=== PATIENT | female | born 1950 | race Caucasian/White ===

== ENCOUNTER 2023-06-19 05:34 | Inpatient (IN) | payer MEDICARE, OTHER ==
[2023-06-12 15:00] LABS: BASOPHILS % (AUTO) 0.5 % (0-1); EOSINOPHILS # (AUTO) 0.1 X10'3 (0-0.9); EOSINOPHILS % (AUTO) 1.4 % (0-6); LYMPHOCYTES # (AUTO) 1.6 X10'3 (1.1-4.8); LYMPHOCYTES % (AUTO) 21.4 % (21-51); MEAN CORPUSCULAR HEMOGLOBIN 31.4 PG (27.0-31.0); MEAN CORPUSCULAR HGB CONC 33.9 g/dL (33.0-36.5); MEAN CORPUSCULAR VOLUME 92.9 FL (78-98); MEAN PLATELET VOLUME 7.8 FL (7.4-10.4); MONOCYTES # (AUTO) 0.4 X10'3 (0-0.9); MONOCYTES % (AUTO) 5.8 % (2-12); NEUTROPHILS # (AUTO) 5.3 X10'3 (1.8-7.7); NEUTROPHILS % (AUTO) 70.9 % (42-75); PRE OP HEMATOCRIT 42.1 % (35.0-45.0); PRE OP HEMOGLOBIN 14.2 g/dL (12.0-16.0); PRE OP PLATELET COUNT 216 X10'3 (140-440); PRE OP WHITE BLOOD COUNT 7.5 10'3 (4.8-10.8); RED BLOOD COUNT 4.53 X10'6 (4.20-5.60); RED CELL DISTRIBUTION WIDTH 13.2 % (11.5-14.5)
[2023-06-12 15:17] LABS: ALBUMIN 3.8 G/DL (3.4-5.0); ALKALINE PHOSPHATASE 82 IU/L (46-116); BLOOD UREA NITROGEN 14 MG/DL (7-18); BUN/CREATININE RATIO 18.2 (10.0-20.0); CALCIUM 9.1 MG/DL (8.5-10.1); CHLORIDE 106 MMOL/L (99-107); CREATININE 0.77 MG/DL (0.40-0.90); PRE OP ALT 22 U/L (30-65); PRE OP ANION GAP 8 (8-16); PRE OP AST 17 U/L (10-37); PRE OP BILIRUB, TOTAL 0.7 MG/DL (0.0-1.0); PRE OP GLUCOSE 92 MG/DL (70-104); PRE OP POTASSIUM 3.7 MMOL/L (3.4-5.1); PRE OP SODIUM 141 MMOL/L (135-145); TOTAL CARBON DIOXIDE 26.7 MMOL/L (24-32); TOTAL PROTEIN 7.7 G/DL (6.4-8.2); eGFR 73 ML/MIN
[~2023-06-19] VITALS: Ht 170.2 cm; Wt 90.1 kg
[2023-06-19] VITALS (38 sets, daily range): BP systolic 109–161; BP diastolic 43–84; PULSE 56–82; RESP 7–20; TEMP 97.4–98.8; O2SAT 90–98
--- NOTE | 2023-06-19 05:30 | NUR ---
CSM: PULSES PRESENT AND MARKED. PATIENT USED MUPIROCIN CREAM AND DID NOT WATCH VIDEO. EDUCATED ON THE USE OF THE INCENTIVE SPIROMETER AND ITS IMPORTANCE
[~2023-06-19 05:34] MED LIST: ASPI81TA52 PO; CHOL500049 PO; DIPH25TA27 PO; GARL1000 PO; MAGN250T11 PO; MULT-1085 PO; cefazolin 2gm/D5W 100mL 100 ML IV ONE; famotidine 20mg tablet PO ONE; ringers solution, lacted 1,000 ML IV SCH; tranexamic acid inj. 1,000 MG in normal saline IV soln 100ML IV ONE; vancomycin 1,500 MG in NS 300ml IV soln IV ONE
[2023-06-19] MEDS ORDERED: vancomycin 1,000mg inj ONE (07:03)
[2023-06-19] MEDS ORDERED: midazolam 1 mg/ML 2ml injection ONE (07:21)
[2023-06-19] MEDS ORDERED: fentaNYL/PF 50MCG/1 ML 2ML syringe ONE ×2 (07:21→10:28)
[2023-06-19] MEDS ORDERED: sevoflurane 250ml liquid IH ONE (07:45)
[2023-06-19] MEDS ORDERED: ondansetron/PF 4mg/2ml inj IV PRN ×2 (08:50→10:55)
[2023-06-19] MEDS ORDERED: morphine 2 MG/ML inj. syringe IV PRN (08:50)
[2023-06-19] MEDS ORDERED: ROPIVAcaine 0.2%/PF PUMP/bolus 545 ML INTERSCALE SCH (08:50)
[2023-06-19] MEDS ORDERED: ringers solution, lacted 1,000 ML IV SCH (08:50)
[2023-06-19] MEDS ORDERED: HYDROmorphone/PF 0.2 MG/ML SYRINGE IV PRN ×2 (08:50)
[2023-06-19] MEDS ORDERED: ROPIVAcaine 0.2% (10 MG/5 ML) BOLUS INJECTION INTERSCALE PRN (08:50)
[2023-06-19] MEDS ORDERED: propofol inj 20 ML IV ONE (09:35)
[2023-06-19] MEDS ORDERED: ondansetron/PF 4mg/2ml inj ONE (09:35)
[2023-06-19] MEDS ORDERED: neostigmine methylsulfate 1 MG/ML 10ml vial ONE (09:35)
[2023-06-19] MEDS ORDERED: ROPIVAcaine 0.5% (5mg/ml) 30ml vial ONE (09:35)
[2023-06-19] MEDS ORDERED: glycopyrrolate 0.2mg/ml inj ONE (09:35)
[2023-06-19] MEDS ORDERED: dexamethasone sod phosphate 4mg/ml inj. ONE (09:35)
[2023-06-19] MEDS ORDERED: rocuronium 10mg/ml inj IV ONE (09:35)
[2023-06-19] MEDS ORDERED: ePHEDrine 50MG/ML INJ. ONE (09:35)
[2023-06-19] MEDS ORDERED: acetaminophen 1,000mg/100ml IV 100 ML IV ONE (09:35)
--- NOTE | 2023-06-19 10:35 | NUR ---
Received from OR via HOSPITAL BED TO RR 7, accompanied by Anesthesiologist DR MAGDALENO and report given by Anesthesiolgist. PT PRESENTS WITH PIV 20G LEFT HAND, RIGHT SHOULDER SILVER WRAP WIOTH POWDER PACK, ON-Q READY AND SLING, RIGHT RADIAL PULSE STRONG,SPO2 97% 6L MASK, LR RUNNING AT 100MLS/HR, VSS. PT RESTING [facility]. Addendum: 06/19/23 at 1057 by Mone Moreau - LILIYA RN Amended: Links added.
[2023-06-19] MEDS ORDERED: naloxone 0.4 mg/ml inj IV PRN (10:55)
[2023-06-19] MEDS ORDERED: acetaminophen 325mg tablet PO PRN (10:55)
[2023-06-19] MEDS ORDERED: bisacodyl 10mg suppository rectal RC PRN (10:55)
[2023-06-19] MEDS ORDERED: diphenhydrAMINE 25mg capsule PO PRN ×2 (10:55)
[2023-06-19] MEDS ORDERED: magnesium hydroxide 30ml (MOM) UD suspension PO PRN (10:55)
[2023-06-19] MEDS ORDERED: oxyCODONE IR 5mg (immed. release) tablet PO PRN ×2 (10:55)
[2023-06-19] MEDS ORDERED: potassium Cl 20mEq in NS 1,000 ML IV SCH (10:55)
[2023-06-19] MEDS ORDERED: HYDROmorphone 1 mg/ml syringe IV PRN (10:55)
[2023-06-19] MEDS ORDERED: HYDROmorphone inj. 0.5 MG/0.5 ML DISP.SYRIN IV PRN (10:55)
--- NOTE | 2023-06-19 11:08 | NUR ---
XRAY AT BEDSIDE, GETTING A XRAY OF RIGHT SHOULDER
[2023-06-19] MEDS ORDERED: tranexamic acid inj. 900 MG in normal saline 100ml IV soln 91 ML IV ONE (14:00)
--- NOTE | 2023-06-19 14:55 | NUR ---
Report called to receiving nurse RENETTA. Transferred via HOSPITAL BED TO ROOM [id number] Belongings ON PT BAG TO ROOM WITH PT. BED IN LOW LOCKED POSITION WITH CALL LIGHT IN REACH, PT HOOKES UP TO BEDISDE MONITOR. CHART TAKEN TO NURSE STATION. Special Issues communicated to receiving nurse. Addendum: 06/19/23 at 1514 by Mone Hayden RN RN Amended: Links added.
[2023-06-19] MEDS ORDERED: CHOL10008 PO (15:18)
[2023-06-19] MEDS ORDERED: MAGN250T29 PO (15:18)
[2023-06-19] MEDS ORDERED: [UNRECOGNIZED DRUG - CODE] PO PRN (15:55)
[2023-06-19] MEDS: gabapentin 300mg capsule PO SCH ×2 (16:59→20:19)
[2023-06-19] MEDS: potassium Cl 20mEq in NS 1,000 ML IV SCH ×2 (16:59→21:00)
[2023-06-19] MEDS: acetaminophen 325mg tablet PO SCH ×2 (17:00→20:19)
[2023-06-19] MEDS: ceFAZolin/D5W- 1GM premix 50 ML IV SCH (17:05)
--- NOTE | 2023-06-19 18:00 | NUR ---
I have reviewed and agree with interventions, assessments, and documentation by Phylicia Funez LVN.
[2023-06-19] MEDS ORDERED: vancomycin/NS 1 GM ADD-VANTAGE 250 ML IV SCH (20:00)
[2023-06-19] MEDS ORDERED: sennosides 8.6mg tablet PO SCH (21:00)
[2023-06-20] MEDS: ceFAZolin/D5W- 1GM premix 50 ML IV SCH (00:06)
[2023-06-20 01:29] VITALS: BP 118/57; PULSE 66; RESP 15; TEMP 98.1; O2SAT 97
[2023-06-20] MEDS: acetaminophen 325mg tablet PO SCH ×2 (02:00→05:51)
[2023-06-20] MEDS: potassium Cl 20mEq in NS 1,000 ML IV SCH (05:00)
[2023-06-20 06:00] VITALS: BP 140/56; PULSE 63; RESP 15; TEMP 97.5; O2SAT 93
--- NOTE | 2023-06-20 06:44 | NUR ---
reported to days. noted pt requested only tylenol for pain. did not want oxy. sling intact. on Q at 6.
[2023-06-20] MEDS: gabapentin 300mg capsule PO SCH ×2 (07:09→12:08)
[2023-06-20 07:24] LABS: BASOPHILS % (AUTO) 0.2 % (0-1); EOSINOPHILS % (AUTO) 0.3 % (0-6); HEMATOCRIT 35.4 % (35.0-45.0); LYMPHOCYTES # (AUTO) 1.1 X10'3 (1.1-4.8); LYMPHOCYTES % (AUTO) 11.2 % (21-51); MEAN CORPUSCULAR HEMOGLOBIN 31.7 PG (27.0-31.0); MEAN CORPUSCULAR HGB CONC 33.8 g/dL (33.0-36.5); MEAN CORPUSCULAR VOLUME 93.9 FL (78-98); MEAN PLATELET VOLUME 8.4 FL (7.4-10.4); MONOCYTES # (AUTO) 0.7 X10'3 (0-0.9); MONOCYTES % (AUTO) 6.7 % (2-12); NEUTROPHILS # (AUTO) 8.3 X10'3 (1.8-7.7); NEUTROPHILS % (AUTO) 81.6 % (42-75); PLATELET COUNT 181 X10'3 (140-440); RED BLOOD COUNT 3.77 X10'6 (4.20-5.60); RED CELL DISTRIBUTION WIDTH 12.7 % (11.5-14.5); WHITE BLOOD COUNT 10.1 X10'3 (4.5-11.0)
[2023-06-20 07:32] LABS: ANION GAP 8 (8-16); CHLORIDE 106 MMOL/L (99-107); POTASSIUM 4.1 MMOL/L (3.5-5.1); SODIUM 142 MMOL/L (135-145); TOTAL CARBON DIOXIDE 28.3 MMOL/L (24-32)
[2023-06-20] MEDS ORDERED: cholecalciferol (vitamin D3) 1,000 unit (25mcg) tablet PO SCH (08:00)
[2023-06-20] MEDS ORDERED: aspirin 81mg, enteric-coated 1 TAB TABLET.DR PO SCH (08:00)
[2023-06-20] MEDS ORDERED: multivitamins, therapeutics tablet PO SCH (08:00)
[2023-06-20] MEDS ORDERED: magnesium oxide 400mg tablet PO SCH (08:00)
[2023-06-20] MEDS ORDERED: aspirin 325mg tablet PO SCH (08:30)
[2023-06-20 10:00] VITALS: BP 132/56; PULSE 60; RESP 16; TEMP 98.2; O2SAT 98
--- NOTE | 2023-06-20 13:00 | NUR ---
TATTOO TECHNICIAN documentation: I have reviewed and agree with all interventions, assessments performed and documented by Phylicia Addison LVN.
--- NOTE | 2023-06-20 14:46 | NUR ---
Patient discharged home via pov with daughter. Personal belongings sent with. Alert and appropriate at the time of discharge.
[2023-06-20] MEDS ORDERED: celeCOXIB 100mg capsule PO SCH (20:00)
[2023-06-21] MEDS ORDERED: acetaminophen 325mg tablet PO PRN (10:55)
== END 2023-06-20 14:45 | disposition home or self-care (01) | DRG 483 ==
LOC: PAS IN 05:34 → ORTHO 4S 15:10
PROVIDERS: ADMIT Orthopaedic Surgery; ATTEND Orthopaedic Surgery
PROC: 0RRJ0JZ Replacement of Right Shoulder Joint with Synthetic Substitute, Open Approach (ICD-10-PCS; principal; 2023-06-19 07:45)
DX: M19.011 Primary osteoarthritis, right shoulder (principal)
CPT/HCPCS: 36415; 73020; 80051; 80053; 82948; 85025; 87081; 93005; 97116; 97161; 97530; A4565; A4615; A4618; A7000; C1713; C1776; C9250; G0378; J0131; J0690; J1100; J2250; J2405; J2704; J2710; J2795; J3010; J3370; J3490; J7120